=== PATIENT | female | born 1990 | race Caucasian/White ===

== ENCOUNTER 2022-05-06 07:50 | Emergency (ER) | payer SELFPAY ==
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
[2022-05-06 08:18] VITALS: BP 153/111; PULSE 93; RESP 22; TEMP 36.9; O2SAT 98
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
--- NOTE | 2022-05-06 08:53 | PC.NURSE ---
CALL TO [facility] FOR TRANSFER TO [facility]. FILLING STATION ATTENDANTHATTIE GRANT IN WITH PT AT THIS TIME. AWAITING EMS STAFF.
[2022-05-06 08:56] VITALS: BP 133/108; PULSE 95; RESP 20; TEMP 36.7; O2SAT 97
[2022-05-06] MEDS: cloNIDine HCL 0.2 MG TABLET (09:00)
--- NOTE | 2022-05-06 09:05 | PC.NURSE ---
0855 [facility] ON-CALL STAFF CALLED AT [phone], SPOKE WITH PREET. [facility]URSE WILL CALL [facility]. AWAITING CALL. 0900 SPOKE WITH JESUS COTO [phone], REPORT ON PT GIVEN. WILL MEET PT AT [facility]. STEPHAN HAS BEEN NOTIFIED PT TO BE TRANSFERRED TO [facility] PER PHONE. PT GIVEN MEDICATION FOR ELEVATED BLOOD PRESSURE, ONLY SMALL SIP OF WATER TAKEN FROM PT WITH MEDICATION. PRIVACY HAS BEEN MAINTAINED FOR PT WITH ONLY ER STAFF, REGISTRATION STAFF
[2022-05-06 09:25] VITALS: BP 135/93; PULSE 93
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
--- NOTE | 2022-05-06 10:13 | PC.NURSE ---
EMERGENCY CHART, EMTALA FORM, PERSONAL BELONGINGS ALL SENT WITH HATTIE GRANT.
--- NOTE | 2022-05-06 11:45 | PC.NURSE ---
all nurses notes were faxed to siobhan espinoza.
== END 2022-05-06 09:47 | disposition short-term general hospital (02) ==
PROVIDERS: Emergency Provider Emergency Medicine
DX: F99 Mental disorder, not otherwise specified (principal); T14.90XA Injury, unspecified, initial encounter; Y04.8XXA Assault by other bodily force, initial encounter; I10 Essential (primary) hypertension
CPT/HCPCS: 99285; A9270

== ENCOUNTER 2022-05-06 10:22 | Emergency (ER) | payer SELFPAY ==
[2022-05-06] VITALS (7 sets, daily range): BP systolic 91–120; BP diastolic 54–69; PULSE 57–77; RESP 14–20; TEMP 36.9; O2SAT 96–100
--- NOTE | 2022-05-06 10:50 | PC.NURSE ---
Call for help arrived to be with patient.
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
[2022-05-06] MEDS: HALOPERIDOL LACTATE 5 MG/ML VIAL IM (11:42)
[2022-05-06] MEDS: LORazepam INJ (*CRX) 2 MG/ML VIAL IM (11:42)
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
[2022-05-06 11:54] LABS: Basophils Absolute Auto 0.1 K/mm3 (0.0-0.1); Basophils Percent Auto 0.8 % (0.2-1.2); Eosinophils Absolute Auto 0.2 K/mm3 (0-0.3); Eosinophils Percent Auto 1.7 % (0-4.4); Hematocrit 45.2 % (37.0-47.0); Hemoglobin 15.4 g/dL (12.0-15.0); Immature Granulocyte Absolute 0.04 K/mm3 (0.00-0.031); Immature Granulocyte Percent A 0.4 % (0-0.5); Lymphocytes Absolute Auto 2.46 K/mm3 (0.9-3.2); Lymphocytes Percent Auto 25.5 % (18.3-44.2); Mean Corpuscular HGB Conc 34.1 g/dl (32-36); Mean Corpuscular Hemoglobin 32.5 pg (26-34); Mean Corpuscular Volume 95.4 fl (80-100); Monocytes Absolute Auto 0.7 K/mm3 (0.1-0.6); Monocytes Percent Auto 7.2 % (2.6-8.5); Neutrophils Absolute Auto 6.2 K/mm3 (1.3-6.7); Neutrophils Percent Auto 64.4 % (45.5-73.1); Platelet Count Result 361 k/mm3 (150-375); Red Blood Count 4.74 M/mm3 (4.2-5.4); Red Cell Distribution Width 13.2 % (11.5-14.5); White Blood Count 9.6 K/mm3 (4.5-10.0)
[2022-05-06 12:05] LABS: Alanine Aminotransferase 13 U/L (6-35); Albumin Level 4.8 g/dL (3.5-5.1); Alkaline Phosphatase 65 U/L (38-126); Anion Gap 10 mmol/L (8-16); Aspartate Amino Transferase 19 U/L (14-36); Bilirubin,Total 0.9 mg/dL (0.2-1.3); Blood Urea Nitrogen 10 mg/dL (7-17); Calcium 9.4 mg/dL (8.4-10.2); Carbon Dioxide 23 mmol/L (22-30); Chloride 105 mmol/L (98-107); Estimated CRCL calculation 94 ml/min; Estimated Glomerular Filt Rate > 60; Glucose 107 mg/dL (65-110); Potassium 3.3 mmol/L (3.4-5.0); Sodium 138 mmol/L (137-145)
--- NOTE | 2022-05-06 12:21 | PC.NURSE ---
updated pt. on pt. status. states he does not have a ride to be with the patient.
--- NOTE | 2022-05-06 12:22 | PC.NURSE ---
pt. requesting pt. be placed at a psych facility near [place]
[2022-05-06 12:24] LABS: Mucus Urine Heavy /lpf; Squamous Epithelial Cell Urine Many /hpf (Few)
--- NOTE | 2022-05-06 12:29 | PC.NURSE ---
pt. called stating [facility] has a psychiatric facility in [place]
[2022-05-06 12:33] LABS: Appearance Urine Cloudy (Clear); Bilirubin Urine 3+ (Negative); Blood Urine 3+ (Negative); Color Urine Amber (Yellow); Glucose Urine UA Trace mg/dL (Negative); Ketones Urine 2+ mg/dL (Negative); Leukocyte Esterase Ur Negative LEU/UL (Negative); Nitrate Urine Negative (Negative); Protein Urine 3+ mg/dL (Negative); Specific Grav Ur 1.025 (1.001-1.035)
[2022-05-06 12:38] LABS: Add Urine Microscopic? YES
[2022-05-06 12:50] LABS: Amphetamine Screen Urine Negative (Negative); Barbiturate Screen Urine Negative (Negative); Benzodiazepines Screen Urine Negative (Negative); Cannabinoid Screen Urine Positive (Negative); Cocaine Screen Urine Positive (Negative); Methadone Screen Urine Negative (Negative); Opiate Screen Urine Negative (Negative); Phencyclidine Screen Urine Negative (Negative)
--- NOTE | 2022-05-06 12:57 | PC.NURSE ---
Report given to NOBLE Campos she assumed care of pt. at this time.
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
[2022-05-06 13:00] LABS: Acetaminophen < 10 ug/mL (10-30)
[2022-05-06 14:06] LABS: Ethanol < 10 mg/dL (<10)
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
[2022-05-06] MEDS: SODIUM CHLORIDE 0.9% IV 1,000 ML 999 ML IV CONT (14:36)
[2022-05-06 16:53] LABS: Salicylate < 1.0 mg/dL (2-20)
--- NOTE | 2022-05-06 17:04 | PC.NURSE ---
pt awake and reports she is able and willing to talk with crisis. Pt denies being homicidal and suicidal. Margarita at crisis notified of pt in ED and need to be seen
[2022-05-06 18:20] LABS: SARS-CoV-2 RNA PCR Negative
--- NOTE | 2022-05-06 18:43 | PC.NURSE ---
CRISIS AT BEDSIDE
[2022-05-06] MEDS: POTASSIUM CHLORIDE 20 MEQ PACKET (FOR LIQUID) PO (19:13)
[2022-05-06] MEDS: SODIUM CHLORIDE 0.9% IV 1,000 ML 125 ML IV CONT (21:22)
[2022-05-07] VITALS: BP 105/70; PULSE 58; RESP 16; O2SAT 98
--- NOTE | 2022-05-07 00:21 | PC.NURSE ---
This RN was called by [place] to inform me that the timing of the inpatient certificate and involuntary admission paperwork had some incorrect information. This paperwork was filled out by Dr. Dannie Bai, but Dr. Lim is willing to correct deficiencies at this time. Paperwork will be re sent to previously sent facilities with updated information.
--- NOTE | 2022-05-07 02:06 | PC.NURSE ---
Pt awake at this time. A&Ox4. Pt upset about not having her car and is wanting to leave. EDP Carina at bedside and wants pt to be re evaluated by CRISIS at this time. CRISIS has been contacted and agrees to come back to see the pt.
--- NOTE | 2022-05-07 04:05 | PC.NURSE ---
Pt has been re evaluated by CRISIS and not cooperative with questions. Evaluators reporting that pt says their voice makes her want to slit her throat. Pt still candidate for involuntary admission. Pt not happy with this news, wants to leave. Pt offered Ativan by Dr. Lim and she accepts. Pt resting in bed at this time. Pt was again, for a third time, offered [facility] and she again, for the third time has refused. She is still complaining that no one has assessed her but she continues to deny being assessed.
[2022-05-07] MEDS: LORazepam INJ (*CRX) 2 MG/ML VIAL IM (04:06)
--- NOTE | 2022-05-07 04:06 | PC.NURSE ---
2 mg ativan given IM right deltoid per verbal order Dr. Lim
--- NOTE | 2022-05-07 04:10 | PC.NURSE ---
per EDP slava haldol was pulled to give to pt, but per EDP slava haldol wasnt needed to be given for pt.
--- NOTE | 2022-05-07 04:12 | ECG_ITS ---
Measurements Intervals [place] Rate: 61 P: -2 OK: 110 QRS: 58 QRSD: 104 T: 51 QT: 437 QTc: 442 Interpretive Statements SINUS RHYTHM WITH SHORT OK INTERVAL INCOMPLETE RIGHT BUNDLE BRANCH BLOCK BORDERLINE ECG Electronically Signed On 05-07-2022 7:22:02 CDT by Jose Juan George D.O.
[2022-05-07 04:32] VITALS: BP 99/69; PULSE 58; RESP 16; O2SAT 98
--- NOTE | 2022-05-07 04:57 | PC.NURSE ---
Pt placed in green scrubs but refusing to take off her dress under the scrubs. Pt asked by this RN, EDP Dr. Lim, and another ED RN and still refused. Pt told if she didn't remove her dress we would cut it off. Pt still refusing and tells us to cut it off. Pt dress cut off and placed with her other belongings. Pt also upset about having to remove her necklace and breaks it off herself.
--- NOTE | 2022-05-07 07:14 | PC.NURSE ---
Patient report received from NOBLE Parks. All questions answered and care of patient assumed.
--- NOTE | 2022-05-07 07:26 | PC.NURSE ---
Patient appears to be asleep in stretcher. Eyes closed with regular non-labored breathing. Sitter at bedside. Awaiting EMS arrival for transfer to [facility].
== END 2022-05-07 07:45 ==
PROVIDERS: Emergency Provider Emergency Medicine
DX: F29 Unspecified psychosis not due to a substance or known physiological condition (principal); F14.10 Cocaine abuse, uncomplicated; F12.10 Cannabis abuse, uncomplicated; Z20.822 Contact with and (suspected) exposure to COVID-19; F60.2 Antisocial personality disorder
CPT/HCPCS: 36415; 80053; 80307; 81001; 81025; 84443; 85025; 87077; 87086; 87147; 87181; 87186; 93005; 96360; 96361; 96372; 99284; A9270; C9803; J1630; J2060; J7030; U0003; U0005